=== PATIENT | male | born 1960 | race Asian ===

== ENCOUNTER 2017-02-12 18:49 | Inpatient (IN) | payer OTHER ==
[~2017-02-12] VITALS: Ht 172.7 cm; Wt 76.5 kg
[~2017-02-12 18:49] MED LIST: ALBU6.7H IH; BUDE10.2 IH; CALC1TAB92 PO; COMBIH IH; IBUP-1547 PO; LEVA0.6319 NEB; LEVO500 PO; MONT10TA24 PO; PRED10TA3 PO; PRED20TA3 PO; PRED5SOL PO; TIOT185 IH
[2017-02-12] MEDS ORDERED: 0.9% SODIUM CHLORIDE 5 ML NEB SOLUTION NEB ONE ×2 (18:59)
[2017-02-12] MEDS ORDERED: IPRATROPIUM BROMIDE 0.5 MG/2.5 ML NEB SOLUTION NEB ONE (19:00)
[2017-02-12] MEDS ORDERED: ALBUTEROL SULFATE 5 MG/ML 20 ML NEB SOLN [BULK] NEB ONE (19:00)
[2017-02-12] MEDS ORDERED: MethylPREDNISolone SOD SUCC 125 MG/2 ML VIAL IVP ONE (19:00)
[2017-02-12 19:13] LABS: BASOPHILS % (AUTO) 0.4 % (0.0-2.0); HEMATOCRIT 43.7 % (41-53); HEMOGLOBIN 14.6 g/dL (13.5-17.5); LYMPHOCYTES # (AUTO) 1.1 K/uL (1.0-4.8); LYMPHOCYTES % (AUTO) 13.2 % (22.0-44.0); MEAN CORPUSCULAR HEMOGLOBIN 30.5 pg (26.0-34.0); MEAN CORPUSCULAR HGB CONC 33.4 G/dL (31.0-37.0); MEAN CORPUSCULAR VOLUME 91 fL (80-100); MONOCYTES # (AUTO) 0.6 K/uL (0.1-1.0); MONOCYTES % (AUTO) 7.5 % (2.0-9.0); NEUTROPHILS # (AUTO) 6.2 K/uL (1.8-7.7); NEUTROPHILS % (AUTO) 75.9 % (40.0-70.0); PLATELET COUNT (AUTO) 174 K/uL (150-450); RED BLOOD CELL COUNT(AUTO) 4.79 MIL/uL (4.50-5.90); RED CELL DISTRIBUTION WIDTH 13.9 % (11.5-14.5); WHITE BLOOD COUNT (AUTO) 8.2 K/uL (4.5-11.0)
[2017-02-12 19:15] LABS: ABG A-A DIFF O2 153.5 mmHg (10-20.0); ABG BASE EXCESS -2.8 mmol/L (-2.0-3.0); ABG HCO3 22.4 mmol/L (22.0-26.0); ABG OXYHEMOGLOBIN 94.8 % (94.0-100.0); ABG PCO2 39 mmHg (35-45); ABG PH 7.377 (7.35-7.450); ALLEN TEST, BLOOD GAS Positive; IPAP, BG 15 cm H2O; TEMPERATURE, FAHRENHEIT, BG 98.6 FAHREN (96.0-98.6)
[2017-02-12 19:35] LABS: ANION GAP 12 mmol/L (8-16); CARBON DIOXIDE 25 mmol/L (22-29); CHLORIDE 103 mmol/L (98-107); CREATININE 0.74 mg/dL (0.60-1.30); GLOMERULAR FILTR. RATE CALC > 60 mL/min (>60); SODIUM SERUM 140 mmol/L (136-145); UREA NITROGEN, BLOOD 10 mg/dL (7-18)
[2017-02-12 19:52] LABS: B-TYPE NATRIURETIC PEPTIDE 16 pg/mL (0-100)
[2017-02-12] MEDS ORDERED: POTASSIUM CHLORIDE 20 MEQ ER TABLET PO ONE (20:00)
[2017-02-12 20:05] LABS: ALANINE AMINOTRANSFERASE 41 U/L (12-78); ALBUMIN 4.1 g/dL (3.4-5.0); ASPARTATE AMINOTRANSFERASE 29 U/L (15-37); CREATINE KINASE, TOTAL 133 U/L (39-308); PHOSPHORUS 3.3 mg/dL (2.5-4.9); TOTAL PROTEIN, SERUM 8.2 g/dL (6.4-8.2)
[2017-02-12] MEDS ORDERED: CefTRIAXone 1 GM/DEXTROSE 50 ML IV ONE (20:15)
[2017-02-12] MEDS ORDERED: AZITHROMYCIN 500 MG/NS 250 ML IV ONE (20:15)
[2017-02-12] MEDS ORDERED: RAPID SEQUENCE KIT 1 EA KIT ONE (20:26)
[2017-02-12] MEDS ORDERED: ZOLPIDEM TARTRATE 10 MG TABLET PO PRN (20:30)
[2017-02-12] MEDS ORDERED: ONDANSETRON HCL 4 MG/2 ML VIAL IVP PRN (20:30)
[2017-02-12] MEDS ORDERED: SUCCINYLCHOLINE CHLORIDE 20 MG/ML 10 ML VIAL ONE ×2 (20:30→20:34)
[2017-02-12] MEDS ORDERED: ALBUTEROL SULFATE 2.5 MG/0.5 ML NEB SOLUTION NEB PRN (20:30)
[2017-02-12] MEDS ORDERED: KETAMINE HCL 50 MG/ML 10 ML VIAL ONE (20:33)
[2017-02-12] MEDS ORDERED: MAGNESIUM SULFATE 2 GM in DEXTROSE 5%-WATER 50 ML IV ONE (20:45)
[2017-02-12] MEDS: MONTELUKAST SODIUM 10 MG TABLET PO SCH (21:00)
[2017-02-12] MEDS: ACETAMINOPHEN 325 MG TABLET PO PRN (22:30)
[2017-02-12] MEDS: HEPARIN SODIUM,PORCINE 5,000 UNITS/ML VIAL SQ SCH (23:51)
[2017-02-13] VITALS (9 sets, daily range): BP systolic 93–128; BP diastolic 62–79
[2017-02-13] MEDS ORDERED: POTASSIUM CHL 10 MEQ/WATER 50 ML IV PRN
[2017-02-13] MEDS ORDERED: POTASSIUM CHLORIDE 20 MEQ ER TABLET PO PRN
[2017-02-13] MEDS ORDERED: 0.9% SODIUM CHLORIDE 10 ML SYRINGE IVP PRN (00:45)
[2017-02-13] MEDS: IPRATROPIUM BROMIDE 0.5 MG/2.5 ML NEB SOLUTION NEB SCH ×4 (02:17→20:55)
[2017-02-13] MEDS: ALBUTEROL SULFATE 2.5 MG/0.5 ML NEB SOLUTION NEB SCH ×4 (02:17→20:55)
[2017-02-13 05:44] LABS: ALANINE AMINOTRANSFERASE 37 U/L (12-78); ALBUMIN 3.5 g/dL (3.4-5.0); ANION GAP 8 mmol/L (8-16); ASPARTATE AMINOTRANSFERASE 23 U/L (15-37); BILIRUBIN,TOTAL 0.7 mg/dL (0.1-1.0); CALCIUM, TOTAL 8.9 mg/dL (8.8-10.5); CARBON DIOXIDE 25 mmol/L (22-29); CHLORIDE 106 mmol/L (98-107); CREATININE 0.72 mg/dL (0.60-1.30); GLOMERULAR FILTR. RATE CALC > 60 mL/min (>60); POTASSIUM 4.1 mmol/L (3.5-5.1); SODIUM SERUM 139 mmol/L (136-145); TOTAL PROTEIN, SERUM 7.6 g/dL (6.4-8.2); UREA NITROGEN, BLOOD 9 mg/dL (7-18)
[2017-02-13 06:03] LABS: EOSINOPHILS % (AUTO) 0 % (1.0-6.0); HEMATOCRIT 41.3 % (41-53); HEMOGLOBIN 13.4 g/dL (13.5-17.5); LYMPHOCYTES # (AUTO) 0.3 K/uL (1.0-4.8); LYMPHOCYTES % (AUTO) 4.2 % (22.0-44.0); MEAN CORPUSCULAR HEMOGLOBIN 29.9 pg (26.0-34.0); MEAN CORPUSCULAR HGB CONC 32.6 G/dL (31.0-37.0); MEAN CORPUSCULAR VOLUME 92 fL (80-100); MONOCYTES % (AUTO) 0.3 % (2.0-9.0); NEUTROPHILS # (AUTO) 7.5 K/uL (1.8-7.7); PLATELET COUNT (AUTO) 157 K/uL (150-450); RED CELL DISTRIBUTION WIDTH 14.1 % (11.5-14.5); WHITE BLOOD COUNT (AUTO) 7.9 K/uL (4.5-11.0)
[2017-02-13 06:48] LABS: NEUTROPHILS % (AUTO) 95.5 % (40.0-70.0)
[2017-02-13] MEDS: MethylPREDNISolone SOD SUCC 125 MG/2 ML VIAL IVP SCH ×4 (07:56→23:28)
[2017-02-13] MEDS: PANTOPRAZOLE SODIUM 40 MG DR TABLET PO SCH (07:56)
[2017-02-13] MEDS: HEPARIN SODIUM,PORCINE 5,000 UNITS/ML VIAL SQ SCH ×3 (07:56→23:28)
[2017-02-13] MEDS ORDERED: SODIUM CHLORIDE 0.9% 250 ML IV ONE (20:19)
[2017-02-13] MEDS: ACETAMINOPHEN 325 MG TABLET PO PRN (20:21)
[2017-02-13] MEDS: CefTRIAXone 1 GM/DEXTROSE 50 ML IV SCH (20:21)
[2017-02-13] MEDS: MONTELUKAST SODIUM 10 MG TABLET PO SCH (20:21)
[2017-02-13] MEDS: AZITHROMYCIN 500 MG/NS 250 ML IV SCH (23:27)
[2017-02-14] MEDS: ALBUTEROL SULFATE 2.5 MG/0.5 ML NEB SOLUTION NEB SCH ×4 (02:22→19:54)
[2017-02-14] MEDS: IPRATROPIUM BROMIDE 0.5 MG/2.5 ML NEB SOLUTION NEB SCH ×4 (02:22→19:54)
[2017-02-14 05:03] VITALS: BP 118/67
[2017-02-14] MEDS: MethylPREDNISolone SOD SUCC 125 MG/2 ML VIAL IVP SCH ×3 (05:50→18:41)
[2017-02-14 07:21] VITALS: BP 123/73
[2017-02-14] MEDS: PANTOPRAZOLE SODIUM 40 MG DR TABLET PO SCH (08:54)
[2017-02-14] MEDS: HEPARIN SODIUM,PORCINE 5,000 UNITS/ML VIAL SQ SCH ×2 (08:54→16:18)
[2017-02-14] MEDS: OxyCODONE HCL/ACETAMINOPHEN 5-325 MG TABLET PO PRN (08:54)
[2017-02-14 11:22] VITALS: BP 114/77
[2017-02-14] MEDS: ACETAMINOPHEN 325 MG TABLET PO PRN (12:20)
[2017-02-14] MEDS: BENZONATATE 100 MG CAPSULE PO SCH ×2 (12:23→18:41)
[2017-02-14 15:35] VITALS: BP 117/71
[2017-02-14] MEDS: FLUTICASONE PROPIONATE 50 MCG/SPRAY 16 GM NASAL SPRAY NASAL SCH ×2 (16:18→21:01)
[2017-02-14 19:47] VITALS: BP 115/69
[2017-02-14] MEDS: CefTRIAXone 1 GM/DEXTROSE 50 ML IV SCH (21:01)
[2017-02-14] MEDS: MONTELUKAST SODIUM 10 MG TABLET PO SCH (21:01)
[2017-02-14] MEDS: AZITHROMYCIN 500 MG/NS 250 ML IV SCH (21:47)
[2017-02-15] VITALS (7 sets, daily range): BP systolic 95–129; BP diastolic 52–83
[2017-02-15] MEDS: BENZONATATE 100 MG CAPSULE PO SCH ×4 (01:27→23:51)
[2017-02-15] MEDS: HEPARIN SODIUM,PORCINE 5,000 UNITS/ML VIAL SQ SCH ×4 (01:27→23:51)
[2017-02-15] MEDS: MethylPREDNISolone SOD SUCC 125 MG/2 ML VIAL IVP SCH ×5 (01:28→23:52)
[2017-02-15] MEDS: ALBUTEROL SULFATE 2.5 MG/0.5 ML NEB SOLUTION NEB SCH ×4 (02:10→20:10)
[2017-02-15] MEDS: IPRATROPIUM BROMIDE 0.5 MG/2.5 ML NEB SOLUTION NEB SCH ×4 (02:10→20:10)
[2017-02-15] MEDS: FLUTICASONE PROPIONATE 50 MCG/SPRAY 16 GM NASAL SPRAY NASAL SCH ×2 (09:21→21:48)
[2017-02-15] MEDS: PANTOPRAZOLE SODIUM 40 MG DR TABLET PO SCH (09:22)
[2017-02-15] MEDS: ACETAMINOPHEN 325 MG TABLET PO PRN ×2 (18:20→21:51)
[2017-02-15] MEDS: CefTRIAXone 1 GM/DEXTROSE 50 ML IV SCH (21:48)
[2017-02-15] MEDS: MONTELUKAST SODIUM 10 MG TABLET PO SCH (21:49)
[2017-02-15] MEDS: AZITHROMYCIN 500 MG/NS 250 ML IV SCH (22:41)
[2017-02-16] MEDS: ALBUTEROL SULFATE 2.5 MG/0.5 ML NEB SOLUTION NEB SCH ×4 (02:23→19:22)
[2017-02-16] MEDS: IPRATROPIUM BROMIDE 0.5 MG/2.5 ML NEB SOLUTION NEB SCH ×4 (02:23→19:23)
[2017-02-16 04:04] VITALS: BP 122/80
[2017-02-16] MEDS: MethylPREDNISolone SOD SUCC 125 MG/2 ML VIAL IVP SCH (06:39)
[2017-02-16] MEDS: OxyCODONE HCL/ACETAMINOPHEN 5-325 MG TABLET PO PRN (06:39)
[2017-02-16 07:06] VITALS: BP 136/86
[2017-02-16] MEDS: PANTOPRAZOLE SODIUM 40 MG DR TABLET PO SCH (07:59)
[2017-02-16] MEDS: BENZONATATE 100 MG CAPSULE PO SCH ×3 (07:59→23:18)
[2017-02-16] MEDS: HEPARIN SODIUM,PORCINE 5,000 UNITS/ML VIAL SQ SCH ×3 (08:00→23:20)
[2017-02-16] MEDS: FLUTICASONE PROPIONATE 50 MCG/SPRAY 16 GM NASAL SPRAY NASAL SCH ×2 (08:00→21:14)
[2017-02-16 11:31] VITALS: BP 143/83
[2017-02-16 12:47] VITALS: BP 132/70
[2017-02-16] MEDS: PredniSONE 20 MG TABLET PO SCH (12:52)
[2017-02-16 15:53] VITALS: BP 118/70
[2017-02-16 19:34] VITALS: BP 128/82
[2017-02-16] MEDS: MONTELUKAST SODIUM 10 MG TABLET PO SCH (21:15)
[2017-02-16] MEDS: CefTRIAXone 1 GM/DEXTROSE 50 ML IV SCH (21:15)
[2017-02-16] MEDS: AZITHROMYCIN 500 MG/NS 250 ML IV SCH (21:47)
[2017-02-17 00:14] VITALS: BP 110/70
[2017-02-17] MEDS: IPRATROPIUM BROMIDE 0.5 MG/2.5 ML NEB SOLUTION NEB SCH ×3 (02:00→14:00)
[2017-02-17] MEDS: ALBUTEROL SULFATE 2.5 MG/0.5 ML NEB SOLUTION NEB SCH ×3 (02:00→14:00)
[2017-02-17] MEDS ORDERED: 0.9% SODIUM CHLORIDE 5 ML NEB SOLUTION NEB ONE (05:12)
[2017-02-17 05:41] VITALS: BP 122/92
[2017-02-17 07:21] VITALS: BP 127/84
[2017-02-17] MEDS: PredniSONE 20 MG TABLET PO SCH (08:42)
[2017-02-17] MEDS: HEPARIN SODIUM,PORCINE 5,000 UNITS/ML VIAL SQ SCH (08:42)
[2017-02-17] MEDS: BENZONATATE 100 MG CAPSULE PO SCH (08:42)
[2017-02-17] MEDS: PANTOPRAZOLE SODIUM 40 MG DR TABLET PO SCH (08:42)
[2017-02-17] MEDS: FLUTICASONE PROPIONATE 50 MCG/SPRAY 16 GM NASAL SPRAY NASAL SCH (08:42)
[2017-02-17] MEDS ORDERED: PRED20 PO (11:02)
[2017-02-17] MEDS ORDERED: AMOX1TAB16 PO (11:02)
[2017-02-17 11:25] VITALS: BP 111/71
== END 2017-02-17 14:00 | disposition home or self-care (01) | DRG 189 ==
LOC: EMS 18:50 → ICU 21:30 → 5N 02-13 21:53
PROVIDERS: ADMIT Hospitalist; ATTEND Hospitalist
PROC: 5A09357 Assistance with Respiratory Ventilation, Less than 24 Consecutive Hours, Continuous Positive Airway Pressure (ICD-10-PCS; principal; 2017-02-12)
DX: J96.00 Acute respiratory failure, unspecified whether with hypoxia or hypercapnia (principal); J44.1 Chronic obstructive pulmonary disease with (acute) exacerbation; J45.902 Unspecified asthma with status asthmaticus; K74.60 Unspecified cirrhosis of liver; E87.6 Hypokalemia; J20.9 Acute bronchitis, unspecified; K21.9 Gastro-esophageal reflux disease without esophagitis; Z79.899 Other long term (current) drug therapy
CPT/HCPCS: 71250; 82805; 83735; 84100; 87040; 87070; 87081; 87205; 93005; 94640; 94644; 94660; 96365; 96368; 96375; 99291; J0330; J0456; J0696; J1644; J2930; J3475; J3490; J7050; J7060